=== PATIENT | female | born 1975 | race Caucasian/White ===

== ENCOUNTER 2018-04-03 10:43 | Emergency (ER) | payer BC ==
[~2018-04-03] VITALS: Ht 157.5 cm; Wt 72.6 kg
[2018-04-03 10:53] VITALS: Ht 157.5 cm; Wt 72.6 kg
[2018-04-03 12:14] VITALS: BP 124/56
== END 2018-04-03 12:14 | disposition home or self-care (01) ==
LOC: ED 10:43
DX: N63.20 Unspecified lump in the left breast, unspecified quadrant (principal); N63.10 Unspecified lump in the right breast, unspecified quadrant; Z85.43 Personal history of malignant neoplasm of ovary